=== PATIENT | male | born 1950 | race Caucasian/White ===

== ENCOUNTER 2023-02-07 12:18 | Outpatient (RCR) | payer OTHER ==
[~2023-02-07 12:18] MED LIST: ADULT MULTIVIT1 EACH PO; ASPIRIN 81M81 MG/TA2 PO; CORDARONE200 MG/TAB PO; EPA FISH OIL1 SGL PO; GENTLE LAXATIVE5 MG PO; GLUCOPHAGE1000 MG PO; HCTZ 25MG TAB25 MG PO; LIPITOR 40MG TA40 MG PO; PLAVIX 75MG TAB75 MG PO; ROXICODONE 55 MG/TAB PO; SYNTHROID0.05 MG/TA PO
== END 2023-02-09 | disposition home or self-care (01) ==
LOC: COL.CR
DX: Z48.812 Encounter for surgical aftercare following surgery on the circulatory system (principal); Z95.1 Presence of aortocoronary bypass graft

== ENCOUNTER → 2023-03-12 | Outpatient (RCR) | payer OTHER | END | disposition home or self-care (01) | LOC: COL.CR | DX: Z48.812 Encounter for surgical aftercare following surgery on the circulatory system (principal); Z95.1 Presence of aortocoronary bypass graft; I25.2 Old myocardial infarction ==

== ENCOUNTER 2023-04-09 15:41 | Outpatient (RCR) | payer OTHER | END 2023-04-10 | disposition home or self-care (01) | LOC: COL.CR | DX: Z48.812 Encounter for surgical aftercare following surgery on the circulatory system (principal); Z95.1 Presence of aortocoronary bypass graft ==

== ENCOUNTER 2023-07-24 08:25 | Inpatient (IN) | payer OTHER ==
[~2023-07-24] VITALS: Ht 167.6 cm; Wt 74.3 kg
[2023-07-24] VITALS (13 sets, daily range): BP systolic 77–110; BP diastolic 59–90; PULSE 89–154; TEMP 97.5–98.7
[2023-07-24] MEDS ORDERED: fentaNYL 50 MCG/ML 2 ML VIAL IV ONE (09:00)
[2023-07-24] MEDS ORDERED: NS 500 ML IV ONE (09:00)
[2023-07-24] MEDS ORDERED: dilTIAZem 25 MG/5 ML VIAL IV ONE (09:00)
[2023-07-24] MEDS ORDERED: CEPHALEXIN500 M1 PO (09:22)
[2023-07-24] MEDS ORDERED: Heparin 5,000 UNITS/ML 1 ML VIAL IV PRN (10:15)
[2023-07-24] MEDS ORDERED: Heparin 5,000 UNITS/ML 1 ML VIAL IV ONE (10:15)
[2023-07-24] MEDS ORDERED: Heparin/D5W 250 ML IV SCH (10:15)
[2023-07-24] MEDS ORDERED: Esmolol/Na Chlor 0.9% 250 ML IV ONE (11:15)
[2023-07-24] MEDS ORDERED: 1/2 NS 1,000 ML IV SCH ×2 (11:15→15:45)
[2023-07-24] MEDS ORDERED: Esmolol 10 MG/ML 10 ML VIAL IV ONE (11:15)
[2023-07-24] MEDS ORDERED: *Potassium Replacement Protocol MC SCH (11:45)
--- NOTE | 2023-07-24 11:55 | NUR ---
Pt arrived to room ICU 4 at 1133 via stretcher. Pt ambulated to bed with standby assistance. Pt attached to critical care monitors. HR is in the 150s. Pt denies any pain at this time. LLE is red, edamatos with 3+ pitting edema and warm to touch. SBP is in the 90s. Notified Viridiana about low pressures and wanting clarification about starting esmalol. Liliya stated she would call me back after taking to Dr. Taylor. Heparin gtt infusing per orders. Pt oriented to room. Call light within reach. Will continue with POC.
[2023-07-24] MEDS ORDERED: NS 1,000 ML IV SCH (12:00)
[2023-07-24] MEDS ORDERED: 1/2 NS 500 ML IV SCH ×2 (13:00→13:45)
[2023-07-24] MEDS ORDERED: hydroCHLOROthiazide 25 MG TAB PO SCH (13:17)
[2023-07-24] MEDS ORDERED: Clopidogrel 75 MG TAB PO SCH (13:17)
[2023-07-24] MEDS ORDERED: Insulin Lispro (HumaLOG) SQ SCH (13:19)
[2023-07-24] MEDS ORDERED: 1/2 NS 1,000 ML IV ONE (14:15)
--- NOTE | 2023-07-24 15:05 | NUR ---
Dr. Taylor and helper animal laboratory team at bedside for NIKOLAY and cardioversion.
--- NOTE | 2023-07-24 15:41 | NUR ---
Notified Dr. Taylor that pts blood pressure was 77/59. Orders to give 1/2 NS bolus.
[2023-07-24] MEDS ORDERED: Amiodarone 200 MG TAB PO SCH (15:45)
--- NOTE | 2023-07-24 20:15 | NUR ---
Received report from RIK Coon. Patient resting quietly in bed watching TV. Reports mild pain rated 3/10 to left lower leg d/t cellulitis. Kavon notified. Orders received for PRN tylenol. Vitals within normal limits. No further needs noted at this time.
[2023-07-24] MEDS ORDERED: Acetaminophen 325 MG TAB PO PRN (20:30)
[2023-07-24] MEDS ORDERED: Atorvastatin 40 MG TAB PO SCH (21:00)
[2023-07-25] VITALS (8 sets, daily range): BP systolic 102–146; BP diastolic 70–89; PULSE 86–108; TEMP 97.9–99.4
[2023-07-25 02:07] LABS: BASO # 0.1 K/mm3 (0.0-0.2); BASO % 0.5 % (0.0-2.0); EOS # 0.2 K/mm3 (0.0-0.7); EOS % 1.7 % (0.0-4.0); GRAN # 8.4 K/mm3 (1.4-6.5); GRAN % 76.9 % (42.2-75.2); HEMOGLOBIN 10.9 g/dl (13.5-18.0); LYMPH # 1.6 K/mm3 (1.2-3.4); LYMPH % 14.2 % (20.0-51.0); MEAN CELL VOLUME 81 fl (80.0-100.0); MEAN CORPUSCULAR HEMOGLOBIN 27 pg (27-31); MEAN CORPUSCULAR HGB CONC 33 g/dl (33.0-37.0); MEAN PLATELET VOLUME 10.4 fl (7.4-10.4); MONO # 0.7 K/mm3 (0.1-0.6); MONO % 6.3 % (1.7-9.3); PLATELET COUNT 373 K/mm3 (130-400); RED BLOOD COUNT 4.07 M/mm3 (4.20-5.60); REDCELL DISTRIBUTION WIDTH-CV 14.5 % (11.5-14.5)
[2023-07-25 02:13] LABS: HEMATOCRIT 32.9 % (42.0-52.0)
--- NOTE | 2023-07-25 07:00 | NUR ---
Report received from RIK Anthony; patient currently resting in bed watching TV. Patient has heparin running through his peripheral IV; patient has another peripheral INT placed and no other lines or tubes in place this morning. Patient is on room air and vital signs are within normal limits. Patient remains in sinus rhythm this morning.
[2023-07-25] MEDS ORDERED: Potassium Bicarbonate/Citrate 20 MEQ Effervescent TAB PO SCH (11:00)
[2023-07-25 11:28] LABS: CALCIUM 8.9 mg/dL (8.4-10.2); CREATININE, serum 1.12 mg/dL (0.72-1.25); MAGNESIUM 1.8 mg/dL (1.6-2.6); POTASSIUM 4.4 mEq/L (3.5-4.5)
--- NOTE | 2023-07-25 11:37 | NUR ---
squirrel worker contacted Emely at financial counseling to discuss patient's insurance because during his last stay it was noted he thought he also had Medicare or Medicaid along with his [employer]. Emely determined patient has Medicare part A only and his [employer]. Medicare Part A ID is [id number] SW met with patient to discuss discharge planning. Patient lives alone in [place]. Points of contact is Sirena (daughter) P# [phone] and Paulino (son) P# [phone]. PCP is Dr. Farooq at [facility] in [place]. Pharmacy for immediate needs is [facility]. Insurance is [employer] and Medicare A. No issues affording medications. DPOA-HC Is [facility]. NO DME at this time. Patient reports to normally be independent with ADLS. Patient typically is able to drive himself to appointments. Patient is a re-admit in the last 30 days, so protective services social worker discussed home health services and provided the Medicare.gov list of options in the area. Patient is reviewing, SW will continue to follow. Patient stated he would like to return home at time of discharge. SW explained if patient chose to not want home health at time of discharge he can obtain it through his PCP. Patient understood. DIscharge plan: Home
--- NOTE | 2023-07-25 17:30 | NUR ---
Reported off to RIK Saldana; patient taken upstairs to room 330 on surgical floor by this nurse and RIK Knott. Patient taken upstairs by wheelchair with all his belongings. Patient in stable condition and vital signs within normal limits. Patient taken upstairs with heparin running through a peripheral IV.
--- NOTE | 2023-07-25 17:47 | NUR ---
Pt. to the floor from ICU. Pt. is A&OX3. Assessment wnl. Pt. denies pain. IV to lt. ac with heparin gtt infusing per orders. INT to rt. forearm patent. Pt. denies further needs, call light within reach.
--- NOTE | 2023-07-25 20:28 | NUR ---
Patient assessed at this time, [facility], reports minimal pain to left leg, PS of 2/10, noted edema to left leg but patient stated it's way better, medrec reviewed and patient reports he no longer takes keflex and also stated that [facility], still with heparin drip infusing well on his left antecubital, INT infusing well on right hand, denies further needs, call light and personal items within reach, will continue to monitor.
--- NOTE | 2023-07-25 23:27 | NUR ---
Called Kavon, the PA regarding the sliding scale, received an order to change it to achs instead of every 4 hours.
[2023-07-25] MEDS ORDERED: Glucagon 1 MG VIAL IM PRN (23:45)
[2023-07-25] MEDS ORDERED: Dextrose 50% Water 25 GM/50 ML SYRINGE IV PRN (23:45)
[2023-07-25] MEDS ORDERED: Dextrose (Glucose) 15 GM (4 x 3.75 GM) Chewable TABLET PACK PO PRN (23:45)
[2023-07-26 03:41] VITALS: BP 120/80; PULSE 97; TEMP 98.6
[2023-07-26 08:00] VITALS: BP 126/78; PULSE 107; TEMP 99.2
[2023-07-26] MEDS ORDERED: Insulin Lispro (HumaLOG) SQ SCH (08:00)
--- NOTE | 2023-07-26 08:26 | NUR ---
Pt resting in bed with pain 2/10 in left calf. Steady gait to bathroom with frequent urination. Left calf reddend, peeling, and tight skin with +2 edema. Telle sinus tach, heparin running, pt A/O x4, toelrating deit well. Will continue to monitor.
[2023-07-26] MEDS ORDERED: Apixaban 5 MG TABLET PO SCH (09:50)
[2023-07-26 10:57] VITALS: BP 119/80; PULSE 96; TEMP 98.5
--- NOTE | 2023-07-26 13:37 | NUR ---
Data: Distributor Sales Manager attempted visit 2 x during Distributor Sales Manager rounds. Patient was sleeping both times. Assessment: Patient sleeping. Plan of Care: Chaplains will remain available as needed/requested while Patient is admitted to this hospital.
[2023-07-26 15:51] VITALS: BP 129/83; PULSE 81; TEMP 98.7
--- NOTE | 2023-07-26 19:49 | NUR ---
Patient resting in bed, family at bedside, off the heparin drip since dayshift and is on eliquis, reports pain to left leg, PS of 4/10, tylenol given per request, still with 2 IV infusing well, denies further needs, call light and personal items within reach, will continue to monitor.
[2023-07-26 19:51] VITALS: BP 119/75; PULSE 92; TEMP 99.4
[2023-07-26 23:58] VITALS: BP 130/79; PULSE 83; TEMP 98
[2023-07-27 04:04] VITALS: BP 121/76; PULSE 88; TEMP 99
--- NOTE | 2023-07-27 06:29 | NUR ---
Patient requested tylenol at this time, denies further needs, still awaiting for final culture result, hopeful to go home today.
[2023-07-27 07:32] VITALS: BP 116/85; PULSE 85; TEMP 99
--- NOTE | 2023-07-27 08:48 | NUR ---
Pt resting in bed with no pain, A/O x4, steady gait around room independently. Pt toelrating deit well, telle in place sinus rythem. L calf and esparza shiny, thin skin with open blisers, +2 edema, warm and tender to the touch. Pt asking about discharge, will continue to monitor.
[2023-07-27 11:30] VITALS: BP 116/75; PULSE 76; TEMP 97.9
[2023-07-27 16:07] VITALS: BP 147/99; PULSE 78; TEMP 98.3
[2023-07-27 19:07] VITALS: BP 119/75; PULSE 75; TEMP 99
--- NOTE | 2023-07-27 20:20 | NUR ---
PT IN BED, HAS IV ANTIBIOTIC INFUSING TO RT HAND WITHOUT PROBLEM. PT IS ALERT AND ORIENTED X4. HS MEDS GIVEN WITHOUT PROBLEM. HAS INT TO LAC, FLUSHES WELL. DENIES PAIN. LLE WITH REDNESS/SWELLING AND PEELING SKIN, PT REPORTS LEG IS MUCH IMPROVED. REMAINS IN SR PER TELEMETRY. WILL MONITOR FOR CHANGES.
[2023-07-27 23:46] VITALS: BP 143/82; PULSE 77; TEMP 99.3
[2023-07-28] VITALS (7 sets, daily range): BP systolic 101–143; BP diastolic 63–89; PULSE 67–74; TEMP 97.3–98.9
--- NOTE | 2023-07-28 01:14 | NUR ---
PT UP TO SINK DOING A SPONGE BATH. MEDICATED WITH TYLENOL 650MG PO FOR LT LEG PAIN. CALVE AREA DISCOLORED WITH PEELING SKIN, DRY.
--- NOTE | 2023-07-28 02:00 | NUR ---
IV ANTIBIOTIC INFUSING WITHOUT PROBLEM TO RT HAND SITE.
--- NOTE | 2023-07-28 06:00 | NUR ---
ANTIBIOTIC COMPLETE. TAKES SCHEDULED AM MED WITHOUT DIFFICULTY.
[2023-07-28] MEDS ORDERED: Potassium Bicarbonate/Citrate 20 MEQ Effervescent TAB PO ONE (07:15)
--- NOTE | 2023-07-28 07:57 | NUR ---
pt a&ox4 resting in bed, finished up with breakfast. meds given and assessment complete. vss and tele in place. pt denies pain. redness to LLE w scabbing. potassium replaced per protocol. INT to right hand and left AC patent. pt to have loop recorder placed today. pt denies needs at this time. call light in reach.
--- NOTE | 2023-07-28 08:46 | NUR ---
school social worker attended interdisciplinary clinical rounding with Dr. Wang. Patient may discharge home today. SW met with patient to discuss home health again as patient is a re-admit in the last 30 days. Patient stated he does not want home health as he feels he has support with his daughter checking on him. SW explained if he wanted home health at any time he could speak with his PCP to get established. Patient understood. SW reviewed the important message from Medicare. Patient understood, no questions. Patient signed form. SW made copy, placed original in chart and provided copy to patient. Discharge plan: Home
[2023-07-28] MEDS ORDERED: ELIQUIS 5MG PO (09:27)
[2023-07-28] MEDS ORDERED: CORDARONE200 MG/TAB PO (09:27)
[2023-07-28] MEDS ORDERED: TOPROL XL 25MG25 MG PO (09:27)
[2023-07-28] MEDS ORDERED: CLEOCIN HCL300 MG PO (09:28)
--- NOTE | 2023-07-28 10:38 | NUR ---
Initial visit; Patient states he is doing ok and is glad that his daughter will be here today. Upper Leather Sorter inquires as to how he is doing and mentioned that he appeared to be in pain. He states that it isn't as bad as it looks but he is uncomfortable. Patient is receptive to Upper Leather Sorter keeping him in her prayers.
--- NOTE | 2023-07-28 12:45 | NUR ---
INT's discontinued without difficulty. discharge instructions given to pt, all questions answered. pt escorted to personal vehicle by wheelchair.
[2023-07-28] MEDS ORDERED: DOXYCYCLINE HY100 MG PO (16:31)
[2023-07-28] MEDS ORDERED: CIPRO 500MG TA500 MG PO (16:31)
== END 2023-07-28 13:15 | disposition home or self-care (01) | DRG 261 ==
LOC: COL.ER 08:25 → ICU 10:23 → EU 14:20 → ICU 14:27 → SURG 07-25 17:46
PROVIDERS: ADMIT Internal Medicine
PROC: 5A2204Z Restoration of Cardiac Rhythm, Single (ICD-10-PCS; principal; 2023-07-24)
PROC: 0JH632Z Insertion of Monitoring Device into Chest Subcutaneous Tissue and Fascia, Percutaneous Approach (ICD-10-PCS; 2023-07-24)
DX: I48.91 Unspecified atrial fibrillation (principal); L03.116 Cellulitis of left lower limb; Z95.1 Presence of aortocoronary bypass graft; E11.9 Type 2 diabetes mellitus without complications; E03.9 Hypothyroidism, unspecified; E78.5 Hyperlipidemia, unspecified; I10 Essential (primary) hypertension; Z79.84 Long term (current) use of oral hypoglycemic drugs; Z79.82 Long term (current) use of aspirin
CPT/HCPCS: C1764; J0282; J1644; J1815; J2543; J2704; J3010; J7040; J7060